=== PATIENT | male | born 2000 | race Hispanic/Latino ===

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

== ENCOUNTER 2020-12-29 06:59 | Emergency (ER) | payer OTHER, SELFPAY | END 2020-12-29 11:36 | LOC: ERS 06:59 | DX: Z02.89 Encounter for other administrative examinations (principal) | CPT/HCPCS: 99283 ==

== ENCOUNTER 2021-04-24 22:40 | Emergency (ER) | payer SELFPAY | END 2021-04-24 23:35 | disposition home or self-care (01) | LOC: ERS 22:40 | DX: L03.211 Cellulitis of face (principal) | CPT/HCPCS: 99283 ==

== ENCOUNTER 2021-05-26 01:57 | Emergency (ER) | payer SELFPAY | END 2021-05-26 04:02 | disposition home or self-care (01) | LOC: ERS 01:57 | DX: K08.89 Other specified disorders of teeth and supporting structures (principal) | CPT/HCPCS: 99283 ==

== ENCOUNTER → 2022-04-30 | Emergency (ER) | payer SELFPAY ==
[2022-04-30 13:21] LABS: Bilirubin Negative (Negative); Blood, Urine Negative (Negative); Clarity Clear (Clear); Glucose, Urine (Dipstick) Normal (Negative); Ketone, Urine Negative (Negative); Leukocyte Negative Leu/uL (Negative); Nitrite Negative (Negative); Protein, Urine (Dipstick) Negative (Neg-Trace); Specific Gravity, Urine 1.003 (1.002-1.036); Urobilinogen Normal mg/dL (Less than 2); pH, Urine 5.5 (5.0-9.0)
== END ==
LOC: ERS 12:53
DX: K40.90 Unilateral inguinal hernia, without obstruction or gangrene, not specified as recurrent (principal)
CPT/HCPCS: 76870; 81003; 93976

== ENCOUNTER 2024-07-26 17:21 | Emergency (ER) | payer SELFPAY ==
[2024-07-26 18:10] LABS: #Basophils 0.05 10x3/uL (0.0-0.2); %Basophils 0.6 % (0.0-1.0); %Eosinophils 0.6 % (0.0-10.0); %Lymphocytes 25.8 % (21.0-51.0); %Monocytes 7.3 % (0.0-10.0); %Neutrophils 65.4 % (42.0-75.0); Hematocrit 40.5 % (42.0-52.0); Hemoglobin 14.3 g/dL (14.0-18.0); Mean Corpuscular HGB CONC 35.3 g/dL (32.0-36.0); Mean Corpuscular Hemoglobin 31.4 pg (27.0-31.0); Mean Platelet Volume 9.1 fL (7.4-10.4); Platelet Count 263 10x3/uL (130-400); RBC Distribution Width 11.9 % (11.5-14.5); Red Blood Cell (RBC) Count 4.55 mill/uL (4.70-6.10)
[2024-07-26 18:29] LABS: CRP,High Sensitivity (Inhouse) 0.15 mg/dL (< or = 0.5)
[2024-07-26 18:32] LABS: ALT (SGPT) 13 U/L (8-55); AST (SGOT) 29 U/L (5-34); Albumin 4.3 g/dL (3.5-5.0); Alkaline Phosphatase 69 U/L (40-110); Anion Gap 14 mmol/L (10-20); BUN (Urea Nitrogen) 13 mg/dL (8.9-20.6); Calc. Creatinine Clearance 0 mL/min (70-130); Calcium 9.3 mg/dL (7.8-10.44); Carbon Dioxide 18 mmol/L (22-29); Chloride 107 mmol/L (98-107); Estimated GFR 118; Globulin 3.2 g/dL (2.4-3.5); Glucose 89 mg/dL (70-105); Potassium 4.7 mmol/L (3.5-5.1); Protein, Total 7.5 g/dL (6.0-8.3); Sodium 134 mmol/L (136-145)
== END 2024-07-26 18:58 | disposition home or self-care (01) ==
LOC: ERS 17:21
DX: L03.114 Cellulitis of left upper limb (principal); Z75.3 Unavailability and inaccessibility of health-care facilities
CPT/HCPCS: 36415; 80053; 85025; 86141; 99283

== ENCOUNTER 2025-09-11 08:11 | Emergency (ER) | payer SELFPAY ==
[2025-09-11] MEDS ORDERED: HYDROcodone/Acetaminophen 5/325 mg Tablet ONE (09:06)
== END 2025-09-11 09:16 | disposition home or self-care (01) ==
LOC: ERS 08:11
DX: T20.27XA Burn of second degree of neck, initial encounter (principal); X58.XXXA Exposure to other specified factors, initial encounter
CPT/HCPCS: 99283